=== PATIENT | female | born 1970 | race Caucasian/White ===

== ENCOUNTER 2019-04-16 16:31 | Emergency (ER) | payer SELFPAY ==
[~2019-04-16] VITALS: Ht 162.6 cm; Wt 95.3 kg
[2019-04-16 16:35] VITALS: BP 167/83
--- NOTE | 2019-04-16 16:57 | NUR ---
Pt ambulates to chair C w/ c/o head injury---walked through a low seating branch which had a sharp protrusion pt hit head on branch minute punture wound to frontal aspect of head admits make dizzy but denies ko, no emesis unk last tetanus hx--denies rx---none
[2019-04-16] MEDS ORDERED: BACITRACIN OINT 500 UNITS/GM PKT TP ONE (17:05)
[2019-04-16] MEDS ORDERED: NEOMYCIN/POLYMYXIN/BACITRACIN 0.9 GM/1 PKT TP ONE ×2 (17:06→17:15)
[2019-04-16 17:42] VITALS: BP 169/78
== END 2019-04-16 17:42 | disposition home or self-care (01) ==
LOC: MED 16:31
DX: S00.01XA Abrasion of scalp, initial encounter (principal); R42 Dizziness and giddiness; W22.8XXA Striking against or struck by other objects, initial encounter; Y93.89 Activity, other specified; Y92.89 Other specified places as the place of occurrence of the external cause; Y99.8 Other external cause status
CPT/HCPCS: 90471; 90715; 99283

== ENCOUNTER 2021-05-06 20:20 | Emergency (ER) | payer OTHER ==
[~2021-05-06] VITALS: Ht 157.5 cm; Wt 90.7 kg
[2021-05-06 20:35] VITALS: BP 156/77
--- NOTE | 2021-05-06 20:35 | NUR ---
to bed ambulatory
--- NOTE | 2021-05-06 20:40 | NUR ---
RECEIVED IN BED 10 WITH C/O "A LOT" OF VAGINAL BLEEDING. " I THINK IT'S MENOPAUSE"
[2021-05-06 21:17] LABS: EOSINOPHILS # (AUTO) 0.2 K/uL (0-0.4); EOSINOPHILS % (AUTO) 2.1 % (0.0-4.0); HEMATOCRIT 25.1 % (36-48); HEMOGLOBIN 7.8 g/dL (12.0-16.0); LYMPHOCYTES # (AUTO) 3.1 K/uL (2.5-16.5); LYMPHOCYTES % (AUTO) 30.7 % (20.5-51.1); MEAN CORPUSCULAR HEMOGLOBIN 21 pg (27-31); MEAN CORPUSCULAR HGB CONC 31 g/dL (33-37); MONOCYTES % (AUTO) 10.1 % (1.7-9.3); NEUTROPHILS # (AUTO) 5.7 K/uL (1.8-7.7); NEUTROPHILS % (AUTO) 57.1 % (42.2-75.2); PLATELET COUNT (AUTO) 317 K/uL (140-450); RED BLOOD CELL COUNT(AUTO) 3.74 MIL/uL (4.20-5.40); RED CELL DISTRIBUTION WIDTH 24.5 % (11.6-13.7)
[2021-05-06 21:34] LABS: ALBUMIN 3.4 g/dL (3.4-5.0); ANION GAP 12.6 (8-16); CARBON DIOXIDE 24.4 mmol/L (21-32); CREATININE 0.8 mg/dL (0.6-1.3); TOTAL BILIRUBIN 0.2 mg/dL (0.0-1.0)
[2021-05-06 22:25] VITALS: BP 156/77
--- NOTE | 2021-05-06 22:25 | NUR ---
Patient discharged with v/s stable. Written and verbal after care instructions given and explained. Patient verbalized understanding. Ambulatory with steady gait. All questions addressed prior to discharge. Advised to follow up with PMD.
== END 2021-05-06 22:25 | disposition home or self-care (01) ==
LOC: MED 20:20
DX: N93.9 Abnormal uterine and vaginal bleeding, unspecified (principal)
CPT/HCPCS: 36415; 80053; 84702; 85025; 99283

== ENCOUNTER 2021-05-13 16:06 | Emergency (ER) | payer OTHER ==
[~2021-05-13] VITALS: Ht 160 cm; Wt 102.1 kg
[2021-05-13 16:15] VITALS: BP 153/78
--- NOTE | 2021-05-13 16:54 | NUR ---
DR EDMONDS AT BEDSIDE EVALUATING PT
--- NOTE | 2021-05-13 17:00 | NUR ---
50 Y/O FEMALE BIB SELF FOR VAGINAL BLEEDING X1 YEAR. PT WAS SEEN HERE 05/06 FOR VAGINAL BLEEDING AND WAS REFERRED TO PCP. PT WENT TO PCP WAS TOLD SHE HAD LOW H/H LABS. HEMOGLOBIN 5.2 AND WAS TOLD TO COME TO ER. PT REPORTS HAVING INTERMITTENT DIZZINESS/LIGHTHEADEDNESS. DENIES FALLING/LOC. DENIES CP/SOB. PT DENIES PAIN AT THIS TIME. PT A/O X4 WITH EVEN AND UNLABORED RESPIRATIONS. MEDHX: DENIES ALLERGIES: DENIES
--- NOTE | 2021-05-13 17:15 | NUR ---
20 G IV ESTABLISHED TO L AC. BLOOD SAMPLES COLLECTED VIA IV AND HANDED TO SANDER AND POLISHER
[2021-05-13 17:28] LABS: BASOPHILS % (AUTO) 0.1 % (0.0-2.0); EOSINOPHILS # (AUTO) 0.2 K/uL (0-0.4); EOSINOPHILS % (AUTO) 1.7 % (0.0-4.0); HEMATOCRIT 20.5 % (36-48); LYMPHOCYTES # (AUTO) 3.3 K/uL (2.5-16.5); LYMPHOCYTES % (AUTO) 26.9 % (20.5-51.1); MEAN CORPUSCULAR HEMOGLOBIN 21 pg (27-31); MEAN CORPUSCULAR HGB CONC 31 g/dL (33-37); MEAN CORPUSCULAR VOLUME 67.8 fL (80-94); MONOCYTES # (AUTO) 1.2 K/uL (0.8-1.0); MONOCYTES % (AUTO) 9.8 % (1.7-9.3); NEUTROPHILS # (AUTO) 7.5 K/uL (1.8-7.7); NEUTROPHILS % (AUTO) 61.5 % (42.2-75.2); PLATELET COUNT (AUTO) 416 K/uL (140-450); RED BLOOD CELL COUNT(AUTO) 3.03 MIL/uL (4.20-5.40); RED CELL DISTRIBUTION WIDTH 24.2 % (11.6-13.7); WHITE BLOOD COUNT (AUTO) 12.3 K/uL (4.8-10.8)
[2021-05-13 17:30] LABS: HEMOGLOBIN 6.3 g/dL (12.0-16.0)
[2021-05-13 17:40] LABS: ANION GAP 13.1 (8-16); CARBON DIOXIDE 24.2 mmol/L (21-32); CREATININE 0.8 mg/dL (0.6-1.3); POTASSIUM 3.3 mmol/L (3.5-5.1)
[2021-05-13 17:46] LABS: PROTHROMBIN TIME 9.9 secs (10.8-13.4)
--- NOTE | 2021-05-13 18:55 | NUR ---
BLOOD TRANSFUSION CONSENT SIGNED BY PATIENT. CROP QUANTITATIVE GENETICIST USED. REFERENCE #[id number]. CONSENT IN CHART
--- NOTE | 2021-05-13 19:16 | NUR ---
REPORT GIVEN TO DIMAS RN, TRANSFER OF CARE AT THIS TIME
--- NOTE | 2021-05-13 20:00 | NUR ---
RECEIVED REPORT FROM DAY SHIFT ED NURSE MIRANDA, ASSUMED PATIENT CARE. PATIENT OBSERVED IN BED WITH NO REPORTS OF PAIN. BREATHING AT RA 100% O2 SAT. ALERT AND ORIENTED X4, BRAZILIAN SPEAKING. PATIENT IN NO ACUTE DISTRESS. PATIENT AWARE AND CONSENTED TO RECEIVE BLOOD PRODUCTS ORDERED. ALL SAFETY MEASURES IN PLACE INCLUDING BED AT LOWEST POSTION. WILL CONTINUE TO MONITOR AND FOLLOW POC. BLOOD PRODUCTS RECEIVED FROM LABORATORY, WITNESSED BY SECOND NURSE, CONFIRMED PATIENT NAME, , BLOOD TYPE, BLOOD DONOR ID, AND BLOOD PRODUCT NUMBER. VITALS SIGNS STABLE AT TIME OF INFUSION. WILL CONTINUE TO MONITOR PATIENT AND ANY REACTIONS.
--- NOTE | 2021-05-13 22:18 | NUR ---
COMPLETION OF FIRST UNIT OF BLOOD TRANSFUSION. PATIENT OBSERVED STABLE WITH NO APPARENT ACUTE DISTRESS. NO NOTED REACTIONS TO BLOOD TRANSFUSION. PATIENT ALERT AND ORIENTED X4 WITH NO COMPLAINTS OF ANY PAIN. PATIENT BREATHING AT ROOM AIR WITH O2 SAT AT 100% NO COMPLAINTS OF SOB. PATIENT MADE AWARE OF SECOND UNIT OF BLOOD TO BE INFUSED. ALL SAFETY MEASURES IN PLACE, WILL CONTINUE TO MONITOR AND FOLLOW POC.
--- NOTE | 2021-05-13 22:30 | NUR ---
SECOND UNIT OF BLOOD TRANSFUSION ADMNISTERED. PATIENT VITAL SIGNS PRE TRANSFUSION T:98.5, PULSE 71, RESP 19, B/P 133/58, NO COMPLAINT OF PAIN. IN INITIAL RATE OF BLOOD TRANSFUSION AT 60 ML/HR. ALL SAFETY MEASURES IN PLACE WITH BED AT LOWEST POSITION. WILL CONTINUE MONITORING AND FOLLOW POC.
--- NOTE | 2021-05-13 22:30 | NUR ---
Consent signed per patient agreeing to administration of blood. Blood has been type and crossmatched. Blood sent from blood bank. Information on unit of blood checked against patient wristband at bedside by two nurses. All information matches. Patient or responsible alliance party informed of potential complications associated with blood transfusion. Informed of possible transfusion reaction symptoms. Aware of need to notify nurse at once of itching, shortness of breath, flushing, feeling of impending doom, or other symptoms not previously present. Vital signs taken within 5 minutes prior to initiation of transfusion. RN will remain with patient for first 15 minutes of transfusion at which time vital signs will be re-assessed.
--- NOTE | 2021-05-13 23:40 | NUR ---
PATIENT OBSERVED IN BED WITH NO SIGNS OF ACUTE DISTRESS. DENIES ANY PAIN. BREATHING AT RA. BLOOD TRANSFUSION CONTINOUSLY RUNNING, IV SITE DRY AND INTACT WITH NO SIGNS OF INFILTRATION. ALL SAFETY MEASURES IN PLACE. WILL CONTINUE TO MONITOR.
--- NOTE | 2021-05-14 01:20 | NUR ---
BLOOD TRANSFUSION COMPLETED, NO REACTION NOTED, VSS. PATIENT DENIED ANY PAIN OR SOB.
[2021-05-14 02:10] VITALS: BP 142/65
== END 2021-05-14 02:10 | disposition home or self-care (01) ==
LOC: MED 16:06
DX: D64.9 Anemia, unspecified (principal); N93.8 Other specified abnormal uterine and vaginal bleeding; Z98.890 Other specified postprocedural states
CPT/HCPCS: 36415; 80048; 81002; 81025; 85025; 85610; 85730; 86886; 86900; 86901; 86920; 99285; P9016

== ENCOUNTER 2021-06-09 12:45 | Emergency (ER) | payer OTHER ==
[~2021-06-09] VITALS: Ht 157.5 cm; Wt 102.1 kg
[2021-06-09 13:01] VITALS: BP_SYST 140; BP_SYST 147; BP_DIAS 79; BP_DIAS 86
--- NOTE | 2021-06-09 13:06 | NUR ---
AMBULATED TO BED 4
--- NOTE | 2021-06-09 13:43 | NUR ---
DR. STVOER BEDSIDE EVALUATING PT
--- NOTE | 2021-06-09 14:04 | NUR ---
PT MOVED TO BED 9
--- NOTE | 2021-06-09 14:07 | NUR ---
50/F BIB SELF WITH C/O VAGINAL BLEEDING. STATES SHE WAS SEEN HER PREVIOUSLY FOR SAME SYMPTOMS AND WAS TOLD ITS MENOPAUSE BUT STATES THE BLEEDING HAS GOTTEN HEAVIER AND SHE IS PASSING CLOTS FOR THE PAST MONTH. C/O DIZZINESS, DENIES CP, SOB, N/V/D. PT STATED SHE HAS BEEN SATURATING PADS FOR THE PAST MONTH. MEDHX: DENIES ALLERGIES: DENIES
--- NOTE | 2021-06-09 14:10 | NUR ---
20 G IV ESTABLIHSED IN L AC. BLOOD WORK COLLECTED FROM IV
--- NOTE | 2021-06-09 14:18 | NUR ---
BLOOD WORK HANDED TO STAINED GLASS PAINTER [facility]
--- NOTE | 2021-06-09 14:31 | NUR ---
Female Stone And Plate Preparer Apprentice accompanied female patient for Pelvic Exam.
[2021-06-09 14:39] LABS: BASOPHILS % (AUTO) 0.1 % (0.0-2.0); EOSINOPHILS # (AUTO) 0.3 K/uL (0-0.4); EOSINOPHILS % (AUTO) 2.6 % (0.0-4.0); HEMOGLOBIN 7.2 g/dL (12.0-16.0); LYMPHOCYTES # (AUTO) 2.8 K/uL (2.5-16.5); MEAN CORPUSCULAR HEMOGLOBIN 23 pg (27-31); MEAN CORPUSCULAR HGB CONC 32 g/dL (33-37); MEAN CORPUSCULAR VOLUME 72.4 fL (80-94); MONOCYTES # (AUTO) 1.1 K/uL (0.8-1.0); NEUTROPHILS # (AUTO) 5.8 K/uL (1.8-7.7); NEUTROPHILS % (AUTO) 58.3 % (42.2-75.2); PLATELET COUNT (AUTO) 427 K/uL (140-450); RED BLOOD CELL COUNT(AUTO) 3.18 MIL/uL (4.20-5.40); RED CELL DISTRIBUTION WIDTH 24.1 % (11.6-13.7); WHITE BLOOD COUNT (AUTO) 9.9 K/uL (4.8-10.8)
[2021-06-09 14:56] LABS: PROTHROMBIN TIME 10.2 secs (10.8-13.4)
[2021-06-09 14:57] LABS: ALBUMIN 3.5 g/dL (3.4-5.0); ANION GAP 12.1 (8-16); CARBON DIOXIDE 26.1 mmol/L (21-32); CREATININE 0.8 mg/dL (0.6-1.3); POTASSIUM 3.2 mmol/L (3.5-5.1); TOTAL BILIRUBIN 0.2 mg/dL (0.0-1.0)
--- NOTE | 2021-06-09 15:20 | NUR ---
ULTRASOUND BEDSIDE WITH PATIENT
--- NOTE | 2021-06-09 15:50 | NUR ---
Patient appears to be resting comfortably in bed WITH EYES CLOSED. Vital Signs within normal limits AND CHARTED. Respirations even and unlabored.
[2021-06-09] MEDS ORDERED: SODIUM PHOS / POTASSIUM PHOS 1 PKT PDR PO ONE (16:05)
--- NOTE | 2021-06-09 16:23 | NUR ---
BLOOD TRANSFUSION CONSENT SIGNED BEDSIDE AND PLACED INTO PT CHART
[2021-06-09] MEDS ORDERED: IBUP-1842 PO (17:13)
[2021-06-09 17:37] VITALS: BP 124/51
== END 2021-06-09 17:37 | disposition home or self-care (01) ==
LOC: MED 12:45
DX: N93.9 Abnormal uterine and vaginal bleeding, unspecified (principal); D50.9 Iron deficiency anemia, unspecified; E87.6 Hypokalemia; Z79.899 Other long term (current) drug therapy
CPT/HCPCS: 36415; 76856; 80053; 81025; 85025; 85610; 85730; 86886; 86900; 86901; 86920; 99284; Q0092